=== PATIENT | male | born 1965 | race Caucasian/White ===

== ENCOUNTER → 2020-12-25 13:22 | Outpatient (REF) | payer OTHER, SELFPAY | LOC: ANHLAB 13:22 | PROVIDERS: PCP Family Medicine; Visit Provider Nurse Practitioner | DX: C44.329 Squamous cell carcinoma of skin of other parts of face (principal) | CPT/HCPCS: 88305 ==

== ENCOUNTER → 2021-02-12 07:23 | Outpatient (REF) | payer OTHER, SELFPAY | LOC: ANHLAB 07:23 | PROVIDERS: PCP Family Medicine; Visit Provider Nurse Practitioner | DX: C44.329 Squamous cell carcinoma of skin of other parts of face (principal) | CPT/HCPCS: 88305; 88331 ==

== ENCOUNTER → 2021-12-24 13:20 | Outpatient (REF) | payer OTHER, SELFPAY | LOC: ANHLAB 13:20 | PROVIDERS: PCP Family Medicine; Visit Provider Nurse Practitioner | DX: L57.0 Actinic keratosis (principal) | CPT/HCPCS: 88305 ==

== ENCOUNTER 2024-11-04 01:32 | Day surgery (SDC) | payer BC, SELFPAY ==
[2024-10-25 08:29] VITALS: BMI 28.4
--- NOTE | 2024-10-25 08:38 | PC.NURSE ---
Report to the Outpatient Waiting Room, entrance under the green pavilion located off [facility], at time _0715 on date _11/04/24 . Planned Procedure Time: _0915.? Time changes happen often and if your time is changed the preop area will call you the afternoon before. - You and your visitor will be asked to self-screen and do not enter if you have any COVID symptoms. Please call surgeon if you need to reschedule. - A mask is optional within the hospital at this time. Patients may have clear liquids (water, carbonated beverages, clear teas, apple juice) until 3 hours prior to surgery with a maximum of 20 ounces. - No food from midnight until time of surgery and no smoking, or chewing tobacco (or any form of nicotine). No chewing gum, candy or mints. - Infants may have breast milk until 4 hours before surgery, formula 6 hours prior to surgery. - Children will be allowed to drink immediately following surgery.? If applicable, please bring a bottle or sippy cup to assist with drinking. Juice, water, soda, and popsicles are readily available.? For infants on formula, please bring formula the day of surgery.? Pacifiers are allowed. Take only the following medications with a SIP of water on the morning of surgery: __NONE DO NOT STOP ANY OF YOUR OTHER PRESCRIPTION MEDICATIONS PRIOR TO SURGERY EXCEPT THE FOLLOWING Hold all vitamins and supplements for 3 days per anesthesiologist. Medications to discontinue per physician Date to take last dose Please no make-up, nail frisian, hairspray, perfume, deodorant, or body powder the day of surgery.? No jewelry (including any body piercings) or valuables the day of surgery, leave them at home.? Please take a shower or bath the night before, or the morning of, surgery with an antibacterial soap.? Wear comfortable, loose fitting clothing.? Children are encouraged to wear pajamas. - Jewelry must be removed prior to entering the operating room.? Rings and piercings that are not removed may be cut off. - The hospital will not accept responsibility for valuables.? - Please leave all valuables, including medications, at home the day of surgery. If you are going home after surgery, a licensed regional truck driver must drive you home.? - NO public transportation without another adult if you receive anesthesia. - We recommend that an adult stay with you for 24 hours following discharge. - We also recommend that you do not drive, make important decision, drink alcoholic beverages, or take any drugs that were not prescribed by your health care provider for at least 24 hours after your discharge time. For Pediatric surgeries, we recommend two adults accompany the child home. Follow any additional instructions given to you from your surgeon. Telephone instructions given to _ALICE_and asked if any additional questions and then verbalized understanding. Patient advised to call surgeon office or pre surgery nurse liaison [phone] if any additional questions.
--- NOTE | 2024-11-03 15:58 | WPDANESEPPF ---
Anes - Initial Pre Proc Eval Procedure: Operation Date: 11/04/24 09:15 Proposed Procedures p Trans Rectal Ultrasound Fusion Guided Prostate Biopsy - Osmar Vargas MD Date/Time: 11/03/24 15:58 Surgeon: Osmar Vargas MD Pre Op Diagnosis: elevated PSA Patient Data Age: 59 Gender: M Height: 1.83 m Weight: 95 kg Allergies Allergy/AdvReac Type Severity Reaction Status Date / Time No Known Allergies Allergy Verified 10/25/24 08:27 Home Medications ?Medication ?Instructions ?Recorded ?Confirmed ?Type levocetirizine 5 mg tablet (Xyzal) 5 mg PO DAILY 06/26/21 10/25/24 History tadalafil 20 mg tablet 20 mg PO DAILY PRN sexual activity 05/27/24 10/25/24 History meloxicam 15 mg tablet 15 mg PO DAILY 10/25/24 10/25/24 History Patient hx anesthesia problems: none Family hx anesthesia problems: none Results Review: All pre-operative results and documents have been reviewed as part of the pre-operative evaluation. [facility] Past Medical History Medical History Blood in semen BMI 29.0-29.9,adult BMI 30.0-30.9,adult Dietary counseling and surveillance (04/12/19) Elevated platelet count Elevated platelet count Encounter for screening for lipoid disorders Encounter for screening for malignant neoplasm of colon Erectile dysfunction High cholesterol Mass of left foot Myalgia Piriformis syndrome of right side Screening for prostate cancer Surgical History Surgical History H/O knee surgery Family History Family History Mother Family history of dementia Sibling Family history of elevated blood lipids Family history of malignant neoplasm of breast in first degree relative Father Family history of heart disease in male family member before age 55 Heart disease Sibling Cancer Social History Social History Smoking packs per day: 0.15 Smoking cigarettes per day: 3.0 Years smoked: 5 Smoking pack-years: 0.75 Smoking status: Former smoker Second hand tobacco smoke exposure: No Additional smoking assessment comments: QUIT 2004 Alcohol intake: current Drinks per week: 1 Substance use: never Substance use type: does not use Do You Feel Safe in your Home?: Yes Lack of Transportation: No Lack of Food: Never True Current Housing: I Have Housing Concerned About Future Housing: No Difficulty Paying Gas/Electric Bills: No Difficulty Paying for Meds: No Currently Unemployed: No Education: Bachelor's Degree Difficulty w/ Childcare or Family Care: No Living arrangements: with family Occupation/Education: occupation 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 Informed Consent: The patient's anesthetic plan and its attendant risks and benefits were discussed with the patient/family/POA. Questions were solicited and answers provided to the satisfaction of the patient/family/POA.
--- OUTSIDE RECORDS SUMMARY | 2024-11-04 01:41 | XMS_ITS | Clinical Summary ---
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 Family History Medical History Relation Name Comments Cancer Brother 4 Healthy Daughter 1 Healthy Daughter 2 Healthy Daughter 3 Heart Attack Father Breast Cancer Sister 1 Relation Name Status Comments Brother 1 Alive Brother 2 Alive Brother 3 Alive Brother 4 Daughter 1 Alive Daughter 2 Alive Daughter 3 Alive Father Mother Sister 1 Alive Sister 2 Alive Sister 3 Alive Sister 4 Alive Sister 5 Alive Social History Tobacco Use Types Packs/Day Years Used Date Smoking Tobacco: Never Smokeless Tobacco: Never Alcohol Use Standard Drinks/Week Comments Yes 0 (1 standard drink = 0.6 oz pur e alcohol) Sex and Gender Information Value Date Recorded Sex Assigned at Not on file Legal Sex Male 3:20 PM CDT Gender Identity Not on file Sexual Orientation Not on file Last Filed Vital Signs Vital Sign Reading Time Taken Comments Blood Pressure 121/83 03/01/2021 3:05 PM CDT Pulse 83 03/01/2021 3:05 PM CDT Temperature 36.8 C (98.2 F) 03/01/2021 3:05 PM CDT Respiratory Rate - - Oxygen Saturation 95% 03/01/2021 3:05 PM CDT Inhaled Oxygen Concentration - - Weight 106.1 kg (233 lb 12.8 oz) 03/01/2021 3:05 PM CDT Height 182.9 cm (6') 03/01/2021 3:05 PM CDT Body Mass Index 31.71 03/01/2021 3:05 PM CDT Plan of Treatment Health Maintenance Due Date Last Done Comments DTAP/TDAP/TD VACCINES (1 - Tdap) 02/01/1984 HEPATITIS B VACCINES (1 of 3 - 19+ 3-dose series) 02/01/1984 COLORECTAL SCREENING 2010 Colorectal Cancer Screening 2010 FIT-DNA Q 3 years 2010 FIT/FOBT Q 1 year 2010 Flex Sig/CT Colonography Q 5 years 2010 ZOSTER VACCINE (1 of 2) 2015 INFLUENZA VACCINE (#1) 2024 PNEUMOCOCCAL VACCINE 0-49 YEARS Aged Out No longer eligible based on patient's age to complete this topic Insurance [facility] [id number] Care Teams Vibration Engineer Relationship Specialty Start Date End Date Nolan Cerrato MD [address] [place] [address] PCP - General Family Practice 03/01/21
--- NOTE | 2024-11-04 06:23 | WPDHPUPDATE1 ---
History and Physical Update Update Date/Time: 11/04/24 06:23 History and Physical has been reviewed, including an updated exam of the patient. There are NO changes in the patient's condition. Risks, benefits, and alternatives have been discussed and questions answered. Patient agrees to proceed with procedure.
[2024-11-04 08:47] VITALS: BP 145/91; PULSE 96; TEMP 36.6; O2SAT 97; BMI 30.4
[2024-11-04] MEDS: LACTATED RINGERS 1,000 ML 30 ML IV CONT (08:50)
--- NOTE | 2024-11-04 09:20 | P.OP_ITS ---
Procedure Note - Detailed Date of Procedure 11/04/24 Pre-op Diagnosis Elevated PSA Post-op Diagnosis Same Procedure Performed [place] prostate biopsy Surgeon Osmar Vargas MD Anesthesia General Description of Procedure Patient is brought to the operative suite where he is positioned in the left lateral position. Systemic sedation is administered per the anesthesia department. Surgical time-out is undertaken and it's verified the patient has received preoperative antibiotics. Transrectal ultrasonography is undertaken with a standard transrectal probe. The [employer] SL system is used to superimpose his previously obtained mpMRI prostate images on the real-time transrectal ultrasond images. Prostate volume is calculated at []cc. On the previous mpMRI there is region of interest. Using the transrectal needle design for prostate biopsies 3 cores from the region of interest was obtained. We then proceeded with a standard 12 core prostate biopsy. Transrectal probe was removed and patient taken to recovery room having tolerated the procedure well. Blood loss was less than 10 cc. Drains No Packing No Pathology Yes Complications No immediate complications Condition Stable Disposition PACU
[2024-11-04 09:22] VITALS: BP 133/81; PULSE 79; RESP 16; O2SAT 95
[2024-11-04 09:50] VITALS: BP 147/83; PULSE 71; RESP 16; O2SAT 95
[2024-11-04 10:15] VITALS: BP 140/84; PULSE 70; RESP 18
== END 2024-11-04 10:19 | disposition home or self-care (01) ==
PROVIDERS: PCP Family Medicine; Visit Provider Urology
PROC: (CPT 55700; principal; 2024-11-04 09:15)
DX: C61 Malignant neoplasm of prostate (principal); M54.50 Low back pain, unspecified; N52.9 Male erectile dysfunction, unspecified
CPT/HCPCS: 55700; 88342; G0416; J0696; J2704; J7120